=== PATIENT | female | born 1965 | race Caucasian/White ===

== ENCOUNTER 2019-02-12 14:52 | Emergency (ER) | payer OTHER ==
[~2019-02-12] VITALS: Ht 160 cm; Wt 84.8 kg
[2019-02-12 15:05] VITALS: Ht 160 cm; Wt 84.8 kg
[2019-02-12 19:09] VITALS: BP 142/75; PULSE 71; RESP 18
--- NOTE | 2019-02-12 22:20 | ERD ---
ER Documentation Chief Complaint Chief Complaint right eye pain and swelling today, no injury, denies headache HPI History of Present Illness: 54-year-old female with past medical history of hyperlipidemia coming in today with complaint of right eye pain that occurred approximately 2 hours to arrival. Patient reports since sudden onset of eye pain that she has had increased red/blood. Patient reports that blood started off as a small area then spread, and that is when she became concerned and came to emergency department. Patient denies trauma/injury. Patient denies headache, nausea, vomiting, severe vision changes. Patient reports being at rest when he felt this onset of pain prior to noticing eye redness. Patient denies coughing, sneezing. At home pharmacological/nonpharmacological treatment for symptoms: Denies Denies social concerns; Denies recent foreign travel ROS All systems reviewed and are negative except as per history of present illness. Medications Home Meds No Active Prescriptions or Reported Meds Allergies Allergies: Coded Allergies: No Known Allergy (Unverified , 09/02/12) PMhx/Soc History of Surgery: Yes (HYSTERECTOMY, APPENDECTOMY) Anesthesia Reaction: No Hx Neurological Disorder: No Hx Respiratory Disorders: No Hx Cardiac Disorders: No Hx Psychiatric Problems: No Hx Miscellaneous Medical Probl: No Hx Alcohol Use: No Hx Substance Use: No Hx Tobacco Use: No Smoking Status: Never smoker Physical Exam Vitals Vital Signs Date Temp Pulse Resp B/P (MAP) Pulse Ox O2 O2 Flow FiO2 Time Delivery Rate 02/12/19 97.9 71 18 142/75 98 Room Air 19:09 (97) 02/12/19 99.4 94 18 164/88 98 15:05 (113) Physical Exam Const: No acute distress Head: Atraumatic Eyes: Subconjunctival hemorrhage noted to right eye, approximately 75%. No hyphema. No pain with extraocular motions. Extraocular motions intact. ENT: Normal External Ears, Nose and Mouth. Neck: Full range of motion. No meningismus. Resp: Clear to auscultation bilaterally Cardio: Regular rate and rhythm, no murmurs Abd: Soft, non tender, non distended. Normal bowel sounds Skin: No petechiae or rashes Back: No midline or flank tenderness Ext: No cyanosis, or edema Neur: Awake and alert, no slurred speech, no focal neuro deficits, no facial asymmetry Psych: Normal Mood and Affect Procedures/MDM ED course includes a thorough examination and history. ED course includes visual acuity. Low suspicion for life-threatening medical emergency. Low suspicion for HEENT medical emergency that requires hospitalization or immediate surgical intervention. Low suspicion for angle-closure glaucoma, chemical injury, corneal ulcer, corneal foreign body, penetrating ocular trauma, scleritis, hyphema. patient presenting with constellation of symptoms likely representing subconjunctival hemorrhage as characterized by history, physical exam finding. ED Dr. Mancini evaluate patient as well. Agrees with plan of care for discharge and follow-up. No respiratory distress, otherwise relatively well appearing and nontoxic. Patient reassessment: Patient with no acute distress. Patient wearing sunglasses. Patient verbalizes understanding of instructions for strict follow- up and return precautions for any vision changes. Patient educated on diagnoses, prescriptions, follow-up care, return precautions. Strict return precautions given for worsening condition; questions answered discharge. Disposition for discharge with followup in 2 days with PCP/clinic; preferably centerless grinder operator. Departure Diagnosis: Primary Impression: Elevated blood pressure reading Additional Impression: Subconjunctival hemorrhage of right eye Condition: Stable Patient Instructions: Subconjunctival Hemorrhage Referrals: [facility] Hours: Thu - Thu 9:00 AM - 5:00 PM Additional Instructions: Thank you very much for allowing us to participate in your care. Your health and safety is our top priority at [facility]. It is important to read all discharge instructions and education provided in your discharge packet. *It is important to call your primary care doctor for an appointment for reevaluation of your blood pressure. For worsening vision or eye pain, you can return to the emergency department; it is very important to follow-up with the centerless grinder operator (eye doctor), call Thursday. Call your primary care doctor TOMORROW for an appointment during the next 2-4 days and bring all the information. If the symptoms get worse and your provider is unavailable, return to the Emergency Department immediately. EUGENIA QUINTANA NP February 12, 2019 22:20
== END 2019-02-12 19:10 | disposition home or self-care (01) ==
LOC: FTE 14:52
DX: H11.31 Conjunctival hemorrhage, right eye (principal); R03.0 Elevated blood-pressure reading, without diagnosis of hypertension
CPT/HCPCS: 99282